=== PATIENT | male | born 1965 | race African-American/Black ===

== ENCOUNTER 2017-10-29 08:33 | Emergency (ER) | payer SELFPAY ==
[2017-10-29 09:44] LABS: #Lymphocytes 1.4 thou/uL (1.20-3.40); #Monocytes 0.5 thou/uL (0.11-0.59); #Neutrophils 3.8 thou/uL (1.40-6.50); %Basophils 0.4 % (0.0-1.0); %Eosinophils 0.6 % (0.0-10.0); %Lymphocytes 24.9 % (21.0-51.0); %Monocytes 8.4 % (0.0-10.0); %Neutrophils 65.8 % (42.0-75.0); Mean Corpuscular HGB CONC 32.7 g/dL (32.0-36.0); Mean Corpuscular Volume 88.7 fl (80.0-94.0); Platelet Count 232 thou/uL (130-400); RBC Distribution Width 12.3 % (11.5-14.5); Red Blood Cell (RBC) Count 5.19 mill/uL (4.70-6.10); White Blood Cell (WBC) Count 5.7 thou/uL (4.8-10.8)
[2017-10-29] MEDS ORDERED: Ondansetron HCl/PF 4 MG/2 ML Vial ONE (09:48)
[2017-10-29 09:57] LABS: ALT (SGPT) 38 U/L (8-55); AST (SGOT) 36 U/L (5-34); Albumin 4.8 g/dL (3.5-5.0); Alkaline Phosphatase 53 U/L (40-150); Anion Gap 16 mmol/L (10-20); BUN (Urea Nitrogen) 14 mg/dL (8.4-25.7); Calc. Creatinine Clearance 0 mL/min (70-130); Calcium 10.8 mg/dL (7.8-10.44); Carbon Dioxide 27 mmol/L (22-29); Chloride 99 mmol/L (98-107); Estimated GFR-MDRD 78; Globulin 3.1 g/dL (2.4-3.5); Glucose 97 mg/dL (70-105); Lipase 9 U/L (8-78); Potassium 3.5 mmol/L (3.5-5.1); Protein, Total 7.9 g/dL (6.0-8.3); Sodium 138 mmol/L (136-145)
--- NOTE | 2017-10-29 11:19 | ULT ---
RIGHT UPPER QUADRANT ULTRASOUND: HISTORY: Right upper quadrant pain. FINDINGS: The liver demonstrates homogeneous echotexture without focal mass or intrahepatic ductal dilatation. No gallstones, gallbladder wall thickening, or pericholecystic fluid is seen. The common duct measu res 3 mm in diameter. The pancreas is not satisfactorily visualized due to overlying bowel gas. No hydronephrosis is seen in the right kidney. There is a 2 cm cyst arising from the inferior pole of t he right kidney. No free fluid is seen in Morison's pouch. IMPRESSION: 1. No evidence of cholelithiasis. 2. Right renal cyst. POS: OFF
== END 2017-10-29 10:57 | disposition home or self-care (01) ==
LOC: ERS 08:33
DX: R11.2 Nausea with vomiting, unspecified (principal); R19.7 Diarrhea, unspecified; I10 Essential (primary) hypertension; F41.9 Anxiety disorder, unspecified; F31.9 Bipolar disorder, unspecified; F17.210 Nicotine dependence, cigarettes, uncomplicated
CPT/HCPCS: 36415; 76705; 80053; 83690; 85025; 96361; 96374; J2405

== ENCOUNTER 2018-02-26 09:22 | Emergency (ER) | payer SELFPAY ==
[2018-02-26] MEDS ORDERED: Ketorolac Tromethamine 30 MG/ML VIAL ONE (09:50)
[2018-02-26 10:10] LABS: #Monocytes 0.4 thou/uL (0.11-0.59); #Neutrophils 4.9 thou/uL (1.40-6.50); %Basophils 0.2 % (0.0-1.0); %Eosinophils 0.7 % (0.0-10.0); %Lymphocytes 16.2 % (21.0-51.0); %Monocytes 6.5 % (0.0-10.0); %Neutrophils 76.4 % (42.0-75.0); Hemoglobin 13.7 g/dL (14.0-18.0); Mean Corpuscular HGB CONC 32.8 g/dL (32.0-36.0); Mean Corpuscular Hemoglobin 28.5 pg (27.0-31.0); Mean Corpuscular Volume 86.9 fl (80.0-94.0); Mean Platelet Volume 7.6 fL (7.4-10.4); Platelet Count 182 thou/uL (130-400); Red Blood Cell (RBC) Count 4.82 mill/uL (4.70-6.10); White Blood Cell (WBC) Count 6.4 thou/uL (4.8-10.8)
[2018-02-26 10:32] LABS: ALT (SGPT) 17 U/L (8-55); AST (SGOT) 23 U/L (5-34); Albumin 4.3 g/dL (3.5-5.0); Alkaline Phosphatase 48 U/L (40-150); Anion Gap 8 mmol/L (10-20); BUN (Urea Nitrogen) 9 mg/dL (8.4-25.7); Bilirubin, Total 0.7 mg/dL (0.2-1.2); Calc. Creatinine Clearance 0 mL/min (70-130); Calcium 9.3 mg/dL (7.8-10.44); Carbon Dioxide 29 mmol/L (22-29); Chloride 106 mmol/L (98-107); Estimated GFR-MDRD Greater than 90; Globulin 2.5 g/dL (2.4-3.5); Glucose 107 mg/dL (70-105); Potassium 4.2 mmol/L (3.5-5.1); Protein, Total 6.8 g/dL (6.0-8.3); Sodium 139 mmol/L (136-145)
[2018-02-26 10:36] LABS: Troponin I Less than 0.010 ng/mL (< 0.028)
[2018-02-26 10:40] LABS: CKMB 7.8 ng/mL (0-6.6)
--- NOTE | 2018-02-26 11:14 | RAD ---
PORTABLE CHEST: Date: 02/26/18 HISTORY: Chest pain. Shoulder pain. FINDINGS: Lung faith are clear. Heart and mediastinum appear normal. Vasculature is normal. IMPRESSION: Unremarkable portable chest. POS: [facility]
--- NOTE | 2018-02-26 11:15 | RAD ---
LEFT SHOULDER 3 VIEWS: Date: 02/26/18 HISTORY: Shoulder pain. FINDINGS: Humeral head is normally positioned. No evidence of fracture or dislocation. AC joint is normally ali gned. No significant degenerative change. IMPRESSION: Unremarkable left shoulder. POS: [facility]
[2018-02-26 12:52] LABS: Troponin I Less than 0.010 ng/mL (< 0.028)
== END 2018-02-26 13:08 | disposition home or self-care (01) ==
LOC: ERS 09:22
DX: M25.512 Pain in left shoulder (principal); I96 Gangrene, not elsewhere classified; L03.116 Cellulitis of left lower limb; L03.115 Cellulitis of right lower limb; R74.0 Nonspecific elevation of levels of transaminase and lactic acid dehydrogenase [LDH]; I10 Essential (primary) hypertension; F41.9 Anxiety disorder, unspecified; F31.9 Bipolar disorder, unspecified; F17.210 Nicotine dependence, cigarettes, uncomplicated
CPT/HCPCS: 36415; 71045; 80053; 82553; 83880; 84484; 85025; 93005; 96372; J1885

== ENCOUNTER 2018-03-04 14:18 | Emergency (ER) | payer SELFPAY | END 2018-03-04 15:38 | disposition home or self-care (01) | LOC: ERS 14:18 | DX: S39.012A Strain of muscle, fascia and tendon of lower back, initial encounter (principal); I10 Essential (primary) hypertension; F41.9 Anxiety disorder, unspecified; F31.9 Bipolar disorder, unspecified; F17.210 Nicotine dependence, cigarettes, uncomplicated; V49.59XA Passenger injured in collision with other motor vehicles in traffic accident, initial encounter | CPT/HCPCS: 99283 ==

== ENCOUNTER 2018-04-14 22:05 | Emergency (ER) | payer SELFPAY ==
[2018-04-14 22:32] LABS: #Basophils 0.1 thou/uL (0.0-0.2); #Eosinphils 0.1 thou/uL (0.0-0.7); #Lymphocytes 1.7 thou/uL (1.20-3.40); #Monocytes 0.6 thou/uL (0.11-0.59); #Neutrophils 6.2 thou/uL (1.40-6.50); %Basophils 0.8 % (0.0-1.0); %Eosinophils 0.8 % (0.0-10.0); %Lymphocytes 19.1 % (21.0-51.0); %Monocytes 7.2 % (0.0-10.0); %Neutrophils 72.2 % (42.0-75.0); Hemoglobin 13.9 g/dL (14.0-18.0); Mean Corpuscular HGB CONC 32.5 g/dL (32.0-36.0); Mean Corpuscular Hemoglobin 28.6 pg (27.0-31.0); Mean Corpuscular Volume 88.1 fL (78.0-98.0); Mean Platelet Volume 8.1 fL (7.4-10.4); Platelet Count 183 thou/uL (130-400); RBC Distribution Width 12.7 % (11.5-14.5); Red Blood Cell (RBC) Count 4.85 mill/uL (4.70-6.10); White Blood Cell (WBC) Count 8.7 thou/uL (4.8-10.8)
[2018-04-14 22:51] LABS: Anion Gap 15 mmol/L (10-20); BUN (Urea Nitrogen) 11 mg/dL (8.4-25.7); Calc. Creatinine Clearance 0 mL/min (70-130); Calcium 9.2 mg/dL (7.8-10.44); Carbon Dioxide 27 mmol/L (22-29); Chloride 104 mmol/L (98-107); Estimated GFR-MDRD 46; Glucose 142 mg/dL (70-105); Potassium 3.9 mmol/L (3.5-5.1); Sodium 142 mmol/L (136-145)
[2018-04-14 22:51] LABS: Acetaminophen Less than 6.0 mcg/mL (10.0-30.0); Alcohol Less than 10 mg/dL (Less than 10); Salicylate Less than 8.0 mg/dL (15.0-30.0)
[2018-04-14 22:56] LABS: CKMB 3.3 ng/mL (0-6.6); Troponin I Less than 0.010 ng/mL (< 0.028)
== END 2018-04-15 00:03 | disposition home or self-care (01) ==
LOC: ERS 22:05
DX: T67.5XXA Heat exhaustion, unspecified, initial encounter (principal); F32.9 Major depressive disorder, single episode, unspecified; F17.210 Nicotine dependence, cigarettes, uncomplicated; X58.XXXA Exposure to other specified factors, initial encounter
CPT/HCPCS: 36415; 80048; 80307; 82553; 84484; 85025; 93005; 96360

== ENCOUNTER 2020-02-09 10:12 | Emergency (ER) | payer SELFPAY ==
[~2020-02-09 10:12] MED LIST: Iopamidol 370 76% 100 ML VIAL ONE
[2020-02-09 10:54] LABS: #Eosinphils 0.1 thou/uL (0.0-0.7); #Lymphocytes 1.8 thou/uL (1.20-3.40); #Monocytes 0.9 thou/uL (0.11-0.59); #Neutrophils 8.9 thou/uL (1.40-6.50); %Basophils 0.1 % (0.0-1.0); %Eosinophils 0.6 % (0.0-10.0); %Lymphocytes 15.5 % (21.0-51.0); %Monocytes 7.9 % (0.0-10.0); %Neutrophils 75.8 % (42.0-75.0); Hemoglobin 13.3 g/dL (14.0-18.0); Mean Corpuscular HGB CONC 32.8 g/dL (32.0-36.0); Mean Corpuscular Hemoglobin 28.8 pg (27.0-31.0); Mean Corpuscular Volume 87.8 fL (78.0-98.0); Mean Platelet Volume 7.5 fL (7.4-10.4); Platelet Count 258 thou/uL (130-400); RBC Distribution Width 11.8 % (11.5-14.5); White Blood Cell (WBC) Count 11.7 thou/uL (4.8-10.8)
[2020-02-09 11:17] LABS: ALT (SGPT) 28 U/L (8-55); AST (SGOT) 20 U/L (5-34); Acetaminophen Less than 6.0 mcg/mL (10.0-30.0); Albumin 3.8 g/dL (3.5-5.0); Alcohol Less than 10 mg/dL (Less than 10); Alkaline Phosphatase 55 U/L (40-110); Anion Gap 13 mmol/L (10-20); BUN (Urea Nitrogen) 6 mg/dL (8.4-25.7); Bilirubin, Total 0.3 mg/dL (0.2-1.2); Calc. Creatinine Clearance 0 mL/min (70-130); Calcium 9.3 mg/dL (7.8-10.44); Carbon Dioxide 24 mmol/L (22-29); Chloride 105 mmol/L (98-107); Estimated GFR-MDRD 89; Globulin 2.9 g/dL (2.4-3.5); Glucose 96 mg/dL (70-105); Protein, Total 6.7 g/dL (6.0-8.3); Salicylate Less than 8.0 mg/dL (15.0-30.0); Sodium 138 mmol/L (136-145)
--- NOTE | 2020-02-09 11:49 | ULT ---
Exam: Testicular ultrasound HISTORY: Left testicular pain COMPARISON: None TECHNIQUE: Sagittal and transverse imaging of the left and right hemiscrotum are performed. Testicula r Doppler is performed with grayscale, color-flow, Doppler imaging and spectral waveform analysis. FINDINGS: Right hemiscrotum: Testicle: Homogeneous echotexture. No intratesticular masses. Right testicle measurements: 3.7 x 2.8 x 2.4 Right epididymis: Normal echotexture. Right epididymis measurements: 1.1 x 1.1 x 1.0 cm Hydrocele: None Left hemiscrotum: Left testicle: Homogeneous echotexture. No intratesticular masses. Left testicle measurements: 3.2 x 3.0 x 3.4 cm Left epididymis: Heterogeneous echotexture Left epididymis measurements:1.5 x 1.3 x 3.6 cm Hydrocele: There is a small amount of fluid in the left hemiscrotum There are dilated tubular structures superior to the epididymal head which have increased flow upon V alsalva. Testicular Doppler: There is vascular flow to the left and right testicle. Asymmetric increased flow in the left testicle and epididymis IMPRESSION: 1. Left-sided varicocele 2. Left-sided epididymitis and orchitis.
--- NOTE | 2020-02-09 12:09 | CT ---
CT abdomen and pelvis with IV contrast HISTORY: Abdominal pain. Groin pain. FINDINGS: No comparison. The lung bases are clear. Within the posterior segment right liver lobe, an oval 0.6 cm low-density l esion has the appearance of a cyst on the coronal reformatted views. No solid masses apparent. Cysts within the kidneys measure up to 3.6 cm on the left and 3.3 cm on the right. Small lobular lytic foci within the left iliac bone have the appearance of hemangiomas. No evidence of bowel obstruction or inflammation. At the groin, no significant hernia or inflammation apparent. Mildly distended venous structures exte nding to the left inguinal canal on the most inferior images. IMPRESSION : Enhancing venous structures at the left inguinal canal suggests possibility of varicocele. Scrotum is incompletely imaged. Correlation with clinical findings is required. Sonogram could be used if needed. Renal cysts and other incidental-type findings as detailed above.
[2020-02-09 13:17] LABS: Bacteria/HPF None Seen HPF (None Seen); Bilirubin Negative (Negative); Blood, Urine Negative (Negative); Clarity Clear (Clear); Glucose, Urine (Dipstick) Normal (Negative); Leukocyte 75 Leu/uL (Negative); Mucous/LPF 1+ LPF (<2+); Nitrite Negative (Negative); Protein, Urine (Dipstick) 20 mg/dL (Neg-Trace); RBC/HPF 0-3 HPF (0-3); Squamous Epithelial 0-3 HPF (0-3); Urobilinogen Normal mg/dL (Less than 2)
[2020-02-09 13:24] LABS: Amphetamine Not Detected (NotDetected); Barbiturates Screen Not Detected (NotDetected); Benzodiazepine Screen Not Detected (NotDetected); Cocaine Metabolite Screen Detected (NotDetected); Medtox Control Line Valid? VALID (VALID); Medtox Reader # READER 1; Methadone Not Detected (NotDetected); Methamphetamine Not Detected (NotDetected); Opiate Screen Not Detected (NotDetected); Oxycodone Screen Not Detected (NotDetected); Phencyclidine (PCP) Not Detected (NotDetected); THC/Cannabinoid Screen Detected (NotDetected); Tricyclic Screen Not Detected (NotDetected)
[2020-02-09] MEDS ORDERED: Azithromycin 250 MG TAB ONE (13:32)
[2020-02-09] MEDS ORDERED: Lidocaine 1% PF 5 ML VIAL ONE (13:32)
[2020-02-09] MEDS ORDERED: cefTRIAXone\\ROCEPHIN 250 MG VIAL ONE (13:32)
[2020-02-09] MEDS ORDERED: Ketorolac Tromethamine 30 MG/ML VIAL ONE (15:15)
[2020-02-09] MEDS ORDERED: Acetaminophen 500 MG TAB ONE (16:53)
[2020-02-09] MEDS ORDERED: traZODone HCl 50 MG TAB ONE (18:58)
[2020-02-09] MEDS ORDERED: Gabapentin 300 MG CAP PO SCH (19:30)
[2020-02-09] MEDS ORDERED: risperiDONE 1 MG TAB PO SCH (19:30)
[2020-02-10] MEDS ORDERED: Gabapentin 300 MG CAP PO SCH (09:00)
[2020-02-10] MEDS ORDERED: Ketorolac Tromethamine 30 MG/ML VIAL ONE ×2 (19:44→19:54)
[2020-02-10] MEDS ORDERED: risperiDONE 1 MG TAB PO SCH (21:00)
== END 2020-02-11 17:49 | disposition home or self-care (01) ==
LOC: ERS 10:12
DX: N45.2 Orchitis (principal); R45.851 Suicidal ideations; F20.9 Schizophrenia, unspecified; F17.210 Nicotine dependence, cigarettes, uncomplicated; F31.9 Bipolar disorder, unspecified; Z79.899 Other long term (current) drug therapy
CPT/HCPCS: 74177; 76870; 80053; 80306; 80307; 81003; 81015; 84443; 85025; 93976; 96372; J0696; J1885; J2001; Q9967

== ENCOUNTER 2023-10-14 02:00 | Emergency (ER) | payer SELFPAY ==
[2023-10-14 03:36] LABS: #Monocytes 0.5 thou/uL (0.11-0.59); #Neutrophils 3.9 thou/uL (1.40-6.50); %Basophils 0.3 % (0.0-1.0); %Eosinophils 0.7 % (0.0-10.0); %Lymphocytes 24.2 % (21.0-51.0); %Monocytes 7.9 % (0.0-10.0); %Neutrophils 66.7 % (42.0-75.0); Hematocrit 36.5 % (42.0-52.0); Hemoglobin 11.7 g/dL (14.0-18.0); Mean Corpuscular HGB CONC 32.1 g/dL (32.0-36.0); Mean Corpuscular Hemoglobin 27.3 pg (27.0-31.0); Mean Corpuscular Volume 85.3 fl (78.0-98.0); Mean Platelet Volume 9.5 fL (7.4-10.4); Platelet Count 217 10x3/uL (130-400); Red Blood Cell (RBC) Count 4.28 mill/uL (4.70-6.10); White Blood Cell (WBC) Count 5.8 10x3/uL (4.8-10.8)
[2023-10-14 04:01] LABS: ALT (SGPT) 17 U/L (8-55); AST (SGOT) 20 U/L (5-34); Albumin 3.4 g/dL (3.5-5.0); Alkaline Phosphatase 36 U/L (40-110); Anion Gap 13 mmol/L (10-20); BUN (Urea Nitrogen) 12 mg/dL (8.4-25.7); Bilirubin, Total 0.4 mg/dL (0.2-1.2); CK (CPK) 300 U/L (30-200); Calc. Creatinine Clearance 0 mL/min (70-130); Calcium 8.4 mg/dL (7.8-10.44); Carbon Dioxide 24 mmol/L (22-29); Chloride 108 mmol/L (98-107); Estimated GFR 100; Globulin 2.1 g/dL (2.4-3.5); Glucose 93 mg/dL (70-105); Potassium 3.5 mmol/L (3.5-5.1); Protein, Total 5.5 g/dL (6.0-8.3); Sodium 141 mmol/L (136-145)
[2023-10-14 04:12] LABS: Acetaminophen Less than 10 mcg/mL (10.0-30.0); Alcohol Less than 10.0 mg/dL (Less than 10); Salicylate Less than 8.0 mg/dL (15.0-30.0)
[2023-10-14 04:17] LABS: Troponin I Less than 0.010 ng/mL (< 0.028)
[2023-10-14 04:23] LABS: Amphetamine Not Detected (NotDetected); Barbiturates Screen Not Detected (NotDetected); Benzodiazepine Screen Not Detected (NotDetected); Cocaine Metabolite Screen Detected (NotDetected); Methadone Not Detected (NotDetected); Methamphetamine Not Detected (NotDetected); Opiate Screen Not Detected (NotDetected); Oxycodone Screen Not Detected (NotDetected); Phencyclidine (PCP) Not Detected (NotDetected); THC/Cannabinoid Screen Not Detected (NotDetected); Tricyclic Screen Not Detected (NotDetected)
[2023-10-14 04:30] LABS: Bacteria/HPF None Seen HPF (None Seen); Bilirubin Negative (Negative); Blood, Urine Negative (Negative); Clarity Clear (Clear); Glucose, Urine (Dipstick) Normal (Negative); Ketone, Urine Negative (Negative); Leukocyte Negative Leu/uL (Negative); Nitrite Negative (Negative); Protein, Urine (Dipstick) 20 mg/dL (Neg-Trace); RBC/HPF 0-3 HPF (0-3); Specific Gravity, Urine 1.033 (1.002-1.036); Squamous Epithelial 0-3 HPF (0-3); pH, Urine 5.5 (5.0-9.0)
[2023-10-14 04:32] LABS: Urine Culture Reflex Yes Yes
== END 2023-10-14 17:54 ==
LOC: ERS 02:00
DX: R45.851 Suicidal ideations (principal); F32.A Depression, unspecified; F17.210 Nicotine dependence, cigarettes, uncomplicated
CPT/HCPCS: 36415; 71045; 80053; 80306; 80307; 81001; 82550; 84443; 84484; 85025; 87086; 93005

== ENCOUNTER 2024-11-20 09:35 | Emergency (ER) | payer SELFPAY ==
[2024-11-20] MEDS ORDERED: cefTRIAXone (ROCEPHIN) 2 GM VIAL ONE (10:40)
[2024-11-20] MEDS ORDERED: Sodium Chloride 0.9% 100 ML ONE (10:40)
== END 2024-11-20 11:49 | disposition home or self-care (01) ==
LOC: ERS 09:35
DX: J11.00 Influenza due to unidentified influenza virus with unspecified type of pneumonia (principal); F17.210 Nicotine dependence, cigarettes, uncomplicated
CPT/HCPCS: 71045; 87428; 96374; J0696